=== PATIENT | female | born 1985 | race Caucasian/White ===

== ENCOUNTER → 2017-01-24 | Outpatient (CLI) | payer BC, OTHER ==
[2017-01-24 11:21] LABS: HEMATOCRIT 35.9 % (36.0-47.0); HEMOGLOBIN 12.2 g/dL (12.0-15.5); HGB HCT DIFFERENCE 0.7; MEAN CORPUSCULAR HEMOGLOBIN 29.9 pg (27.0-33.4); MEAN CORPUSCULAR VOLUME 88 fl (80-97); RED BLOOD COUNT 4.08 10^6/uL (3.72-5.28); RED CELL DISTRIBUTION WIDTH 14.3 % (11.5-14.0); WHITE BLOOD COUNT 7.4 10^3/uL (4.0-10.5)
[2017-01-24 12:08] LABS: BAND NEUTROPHILS % (MANUAL) 1 % (3-5); BASOPHILS % (MANUAL) 0 % (0-2); EOSINOPHILS % (MANUAL) 0 % (0-6); LYMPHOCYTES % (MANUAL) 41 % (13-45); TOTAL CELLS COUNTED 100
[2017-01-24 12:10] LABS: ANISOCYTOSIS SLIGHT; OVALOCYTES 1+; POIKILOCYTOSIS 1+; POLYCHROMASIA SLIGHT
[2017-01-24 12:41] LABS: PATH REVIEW PATHOLOGIST REVIEWED
== END ==
LOC: OD 10:10
PROVIDERS: ATTEND Internal Medicine
DX: R59.1 Generalized enlarged lymph nodes (principal); D72.820 Lymphocytosis (symptomatic)
CPT/HCPCS: 36415; 85025

== ENCOUNTER → 2017-01-26 | Outpatient (CLI) | payer BC ==
--- NOTE | 2017-01-27 09:15 | RADIOLOGY REPORT (SQ) ---
EXAM DESCRIPTION: PET CT SKULL/THIGH COMPLETED DATE/TIME: 01/26/2017 8:13 pm REASON FOR STUDY: GENERALIZED ENLARGED LYMPH NODES COMPARISON: No prior imaging available RADIONUCLIDE AND DOSE: 10.6 mCi F18 FDG The route of agent administration: Intravenous FASTING BLOOD SUGAR: 85 mg/dl CONTRAST TYPE AND DOSE: No CT contrast given. TECHNIQUE: Blood glucose level was verified. Above dose of FDG was injected intravenously. 2-D seg mented attenuation correction images were obtained from the base of the skull to the midthighs. Nonc ontrast CT images were obtained for attenuation correction and fusion with emission images. CT image s were performed without oral or intravenous contrast and are not sensitive for parenchymal lesions. A series of overlapping emission PET images were obtained. Images reviewed and manipulated at [facility] [employer] work station by the radiologist. Images stored on PACS. LIMITATIONS: None. FINDINGS: HEAD AND NECK: In the nasopharynx, there is hypermetabolic lymphoid tissue along the adeno ids without a discrete mass. Lymphoid tissue in the upper nasopharynx has SUV of 8.8. Although the pharyngeal tonsils are not enlarged, there is abnormal increased uptake bilaterally. Ri ght pharyngeal tonsil SUV 4.7, left pharyngeal tonsil SUV 10.2. There are multiple small less than 1 cm hypermetabolic lymph nodes scattered throughout the left neck , SUV of 4. Larger index lymph nodes are as follows: Right jugulodigastric lymph node axial image 29, 1.7 x 1.1 cm in size with 5.6 SUV Left jugulodigastric lymph node axial image 30, 2.1 x 1.3 cm in size, SUV 8.7. CHEST: There is minimal metabolic activity in a 1.2 x 1.1 cm sub- carinal lymph node with SUV 2.8. N o other hilar or mediastinal metabolically active lymph nodes are identified. ABDOMEN AND PELVIS: The spleen is enlarged, at least 20 cm in greatest craniocaudad length with SUV o f 5.4. A less than 2 cm cady hepatis lymph node is present with SUV of 5.8. This is difficult to measure o n the uncontrasted accompanying CT images. PROXIMAL LOWER EXTREMITIES: No areas of abnormal metabolic activity in the soft tissues of the lower extremities. BONES: No abnormal metabolic activity in the visualized skeleton. ADDITIONAL CT FINDINGS: No additional significant findings on the noncontrast CT images. OTHER: Blood pool activity 1.3 SUV. Liver background activity 2.3 SUV IMPRESSION: Hypermetabolic cervical lymph nodes, cady hepatis lymph node, with splenomegaly all com patible with clinical diagnosis of lymphoma TECHNICAL DOCUMENTATION: JOB ID: [id number] [employer]- All Rights Reserved
== END ==
LOC: RAD 17:52
PROVIDERS: ATTEND Internal Medicine
DX: C81.71 Other Hodgkin lymphoma, lymph nodes of head, face, and neck (principal)
CPT/HCPCS: 78815; A9552